=== PATIENT | male | born 1960 | race Caucasian/White ===

== ENCOUNTER → 2017-01-10 | Outpatient (CLI) | payer BC ==
[2017-01-10 09:29] LABS: HEMOGLOBIN A1C 8.89 % (4.2-6.0); MEAN BLOOD GLUCOSE (CALC) 210.037 mg/dL
== END ==
LOC: LAB 09:04
PROVIDERS: ATTEND Internal Medicine
DX: E11.9 Type 2 diabetes mellitus without complications (principal)
CPT/HCPCS: 36415; 82043; 83036

== ENCOUNTER → 2017-07-07 | Outpatient (CLI) | payer BC ==
[2017-07-07 09:13] LABS: HEMOGLOBIN A1C 5.73 % (4.2-6.0)
[2017-07-07 09:23] LABS: CREATININE, URINE 182.4 MG/DL (15-500)
== END ==
LOC: LAB 08:34
PROVIDERS: ATTEND Internal Medicine
DX: E11.9 Type 2 diabetes mellitus without complications (principal)
CPT/HCPCS: 36415; 82043; 83036

== ENCOUNTER → 2017-07-16 | Outpatient (CLI) | payer BC ==
--- NOTE | 2017-07-18 13:26 | DI ---
MRI CERVICAL SPINE SCAN, 07/16/2017 8:52 AM: Clinical History: Cervical spinal stenosis. Previous Exam: None. Sequences: Sagittal T1and T2 weighted. Axial T2 PLUS and FE 3D DUAL. Coronal T1 scans through the upp er cervical spine. The vertebral bodies are of normal height and size. The cervical disc spaces are of normal height and all cervical disc spaces show desiccation change. The cervical cord and cerebellar tonsils are elba l. C2-3 disc spaces normal. C3-4 has a left anterolateral disc herniation that is causing spinal molly l stenosis in the AP diameter and is displacing the cord slightly posteriorly on the left side. There is no neural foraminal stenosis. C4-5 has a bulging but not herniated disc without canal or right ne ural foraminal stenosis. There is left neural foraminal stenosis. C5-6 and C6-7 have central focal bu lging but not herniated discs without canal or neural foraminal stenosis. The disc spaces from C7-T1 through T3-4 are normal. Readin. There is a left anterolateral focal disc herniation at C3-4 causing spinal canal stenosis in the AP diameter but there is no neural foraminal stenosis. 2. C4-5 has a bulging but not herniated disc without canal or right neural foraminal stenosis. There is left neural foraminal stenosis. 3. C5-6 and C6-7 have bulging but not herniated discs without canal or neural foraminal stenosis. 4. The C2-3 and the disc spaces from C7-T1 through T3-4 normal.
== END ==
LOC: MRI 08:42
PROVIDERS: ATTEND Internal Medicine
DX: M48.02 Spinal stenosis, cervical region (principal); M50.11 Cervical disc disorder with radiculopathy, high cervical region; M47.812 Spondylosis without myelopathy or radiculopathy, cervical region
CPT/HCPCS: 72141